=== PATIENT | female | born 1965 | race Caucasian/White ===

== ENCOUNTER 2020-08-17 11:58 | Emergency (ER) | payer OTHER ==
--- NOTE | 2020-08-17 12:19 | EDM.PDOC ---
ED HPI GENERAL MEDICAL PROBLEM - General Chief Complaint: Lower Extremity Injury/Pain Stated Complaint: HURT RT FOOT Time Seen by Provider: 08/17/20 12:05 Source of Information: Reports: Patient History Limitations: Reports: No Limitations - History of Present Illness INITIAL COMMENTS - FREE TEXT/NARRATIVE: Patient is visiting locally and was walking in a basement earlier today. her left foot stepped into a sump pump hole and the right foot was forcefully everted to catch her from falling. Had immediate pain in the mid foot. Did not fall, no injury, no previous problem with the foot. did not take anything for it. Currently under surveillance for bladder cancer but not on chemotherapy. Onset: Today, Sudden Duration: Hour(s):, Constant Location: Reports: Lower Extremity, Right (foot) Quality: Reports: Ache Severity: Mild Improves with: Reports: Rest Worsens with: Reports: Movement (unable to ambulate) Context: Reports: Other Associated Symptoms: Reports: No Other Symptoms - Related Data Allergies Allergy/AdvReac Type Severity Reaction Status Date / Time lidocaine Allergy Cannot Verified 08/17/20 12:19 Remember Home Meds: Home Meds . [No Known Home Meds] 08/17/20 [History] Past Medical History Other Genitourinary History: bladder cancer, under surveillence cystoscopy only - Past Surgical History GI Surgical History: Reports: Appendectomy, Cholecystectomy Female Surgical History: Reports: Tubal Ligation Social & Family History - Tobacco Use Tobacco Use Status *Q: Current Every Day Tobacco User Tobacco Use Within Last Twelve Months: Cigarettes - Alcohol Use Alcohol Use Frequency: Socially - Recreational Drug Use Recreational Drug Use: No Drug Use in Last 12 Months: No Review of Systems - Review of Systems Review Of Systems: See Below Constitutional: Reports: No Symptoms Eyes: Reports: No Symptoms Ears: Reports: No Symptoms Nose: Reports: No Symptoms Mouth/Throat: Reports: No Symptoms Respiratory: Reports: No Symptoms Cardiovascular: Reports: No Symptoms GI/Abdominal: Reports: No Symptoms Genitourinary: Reports: No Symptoms Musculoskeletal: Reports: Foot Pain, Other (gait problem) Neurological: Reports: No Symptoms ED EXAM, GENERAL - Physical Exam Exam: See Below Exam Limited By: No Limitations General Appearance: Alert, WD/WN, No Apparent Distress Eye Exam: Bilateral Eye: Other (normal perrla, eom intact) Ears: Normal External Exam Nose: Normal Inspection, Normal Mucosa Throat/Mouth: Normal Inspection, Normal Lips, Normal Teeth Head: Atraumatic Respiratory/Chest: No Respiratory Distress, Lungs Clear, Normal Breath Sounds Cardiovascular: Regular Rate, Rhythm, No Edema (Female) Exam: Deferred Extremities: Limited Range of Motion (right foot with swelling mid footl Tenderness to compression. No pain to palpation of the ankle, no joint swelling at the ankle. capillary refill < 2 sec right foot. normal sensation intact to the toes of the right foot. dorsalis pedis and posterio tibialist intact. ) Neurological: Alert, Oriented Course - Vital Signs Last Recorded V/S: Last Vital Signs Temp 36.7 C 08/17/20 12:05 Pulse 71 08/17/20 12:05 Resp 16 08/17/20 12:05 BP 119/66 08/17/20 12:05 Pulse Ox 98 08/17/20 12:05 - Radiology Interpretation Free Text/Narrative:: x-ray of the foot interpreted by radiology without any acute osseus abnormalities - Re-Assessments/Exams Free Text/Narrative Re-Assessment/Exam: 08/17/20 12:22 will get an x-ray , offered pain medication and ice, declined. Will get a walker boot and crutches as she is unable to weight bear. Departure - Departure Time of Disposition: 12:45 Disposition: Home, Self-Care 01 Condition: Good Clinical Impression: Foot sprain - Discharge Information *PRESCRIPTION DRUG MONITORING PROGRAM REVIEWED*: No *COPY OF PRESCRIPTION DRUG MONITORING REPORT IN PATIENT KYLIE: No Instructions: Foot Sprain Forms: ED Department Discharge Additional Instructions: Ice, elevate, use tylenol or motrin for pain. Use the post op shoe for at least a week. If you can walk without a limp you can stop using the shoe. Follow up with orthopedic surgeon if not improving. Sepsis Event Note (ED) - Evaluation Sepsis Screening Result: No Definite Risk - Focused Exam Vital Signs: Vital Signs Temp Pulse Resp BP Pulse Ox 08/17/20 12:05 36.7 C 71 16 119/66 98
--- NOTE | 2020-08-17 12:42 | CR ---
[id number] RAD/RAD Foot Right 3V Min EXAM: 3 VIEWS RIGHT FOOT. INDICATION: FOOT PAIN WITH INJURY, PAIN OVER TOP OF FOOT. COMPARISON: None. DISCUSSION: No fracture, dislocation or other acute osseous abnormality. Enthesopathic change at the Achilles insertion. IMPRESSION: 1. No acute osseous abnormalities. Mina Saravia DO 08/17/20 1241 Thank you for allowing us to participate in the care of your patient.
== END 2020-08-17 13:02 | disposition home or self-care (01) ==
LOC: VM.ED 11:58
DX: S93.601A Unspecified sprain of right foot, initial encounter (principal); Z88.4 Allergy status to anesthetic agent; X50.9XXA Other and unspecified overexertion or strenuous movements or postures, initial encounter
CPT/HCPCS: 73630-RT; 99283

== ENCOUNTER 2022-06-14 23:35 | Emergency (ER) | payer OTHER ==
[2022-06-15 00:24] LABS: ANION GAP 14.7 mmol/L (5-15)
== END 2022-06-15 00:45 | disposition home or self-care (01) ==
LOC: VM.ED 23:35
DX: K21.9 Gastro-esophageal reflux disease without esophagitis (principal); Z88.4 Allergy status to anesthetic agent
CPT/HCPCS: 36415; 80053; 84484; 85025; 93005; 93010; 99284; 99285